=== PATIENT | male | born 1965 | race Hispanic/Latino ===

== ENCOUNTER 2020-08-15 18:17 | Emergency (ER) | payer OTHER ==
[2020-08-15] MEDS ORDERED: Ketorolac Tromethamine 30 MG/ML VIAL ONE (18:43)
== END 2020-08-15 18:49 | disposition home or self-care (01) ==
LOC: BURERS 18:17
DX: S29.012A Strain of muscle and tendon of back wall of thorax, initial encounter (principal); E03.9 Hypothyroidism, unspecified; E78.5 Hyperlipidemia, unspecified; I10 Essential (primary) hypertension; Z87.891 Personal history of nicotine dependence; X50.0XXA Overexertion from strenuous movement or load, initial encounter; Y99.0 Civilian activity done for income or pay
CPT/HCPCS: 96372; 99283; J1885